=== PATIENT | female | born 1985 | race Caucasian/White ===

== ENCOUNTER 2020-07-18 00:39 | Outpatient (CLI) | payer BC, SELFPAY ==
[2020-07-18 18:38] LABS: SARS-CoV-2 RNA PCR Negative
== END 2020-07-18 00:40 | disposition home or self-care (01) ==
LOC: ANHCOVIDDT 00:39
PROVIDERS: PCP Family Medicine; Visit Provider Obstetrics & Gynecology
DX: Z01.818 Encounter for other preprocedural examination (principal); Z20.828 Contact with and (suspected) exposure to other viral communicable diseases
CPT/HCPCS: C9803; U0003

== ENCOUNTER 2020-07-21 01:04 | Day surgery (SDC) | payer BC, SELFPAY ==
[2020-07-08 08:54] VITALS: BMI 39.9
--- NOTE | 2020-07-16 15:00 | PM.IMHP ---
H&P: HPI History of Present Illness Date/Time: 07/16/20 15:00 Chief Complaint: Misplaced IUD strings Narrative: Vicky Self is a 34 year old female who wants IUD removed, but strings are not visible. Attempt at blind removal in office was unsuccessful Review of Systems Review of Systems: All systems reviewed & are unremarkable except as noted in HPI and below PMFSH Past Medical History Medical History delivery delivered 06/02/18 Full term female 8lbs 15oz History of PCOS Hypertension Family History Family History Grandparent Carcinoma of colon Diabetes mellitus Cerebrovascular accident Hypertension Father Hypertension Hyperlipidemia Social History Social History Smoking packs per day: 1 Smoking cigarettes per day: 20.0 Years smoked: 16 Smoking pack-years: 16.00 Smoking status: Former smoker Smoking end date: 10/06/17 Alcohol intake: current Drinks per week: 3 Substance use: former Substance use type: marijuana Other substance usage details: 20 years ago Spiritual care concerns: No Meds Home Medications and Allergies Home Medications Medication Instructions Recorded Confirmed Type ibuprofen 200 mg capsule 200 mg PO Q6H PRN 03/10/20 07/08/20 History prenat.vits,cadence,qxk-[id number]-smcir 1 tablet PO DAILY 07/08/20 07/08/20 History [ Vitamin] Allergies Allergy/AdvReac Type Severity Reaction Status Date / Time No Known Allergies Allergy Verified 07/08/20 08:53 Exam Const: General: healthy appearing, no acute distress, alert and awake Resp: Auscultation: clear to auscultation bilaterally Cardio: Rate: regular rate Rhythm: regular rhythm GI: Inspection: non-distended GI Palp: Yes Soft to palpation and No Tenderness to palpation present (GI) : Bimanual exam- vagina & uterus: normal bimanual exam, uterine size normal, non-tender and soft Bimanual Exam- Adnexa, other: normal adnexae, no masses and No adnexal tenderness Extrem: General: no pedal edema and no calf tenderness Psych: Mental Status: mental status grossly normal Assessment and Plan Assessment and plan (1) IUD strings lost: Code(s): T83.32XA - Displacement of intrauterine contraceptive device, initial encounter Status: Acute Assessment and Plan: She signed consent for D&C, hysteroscopic IUD removal after risks, benefits, complications, and alternatives discussed. She expressed understanding and wishes to proceed
[2020-07-21 10:07] VITALS: BP 150/86; PULSE 83; RESP 16; TEMP 36.1; O2SAT 100
[2020-07-21 10:09] VITALS: BMI 41.1
[2020-07-21] MEDS: ACETAMINOPHEN 500 MG TABLET 1000 MG PO (10:20)
[2020-07-21] MEDS: LACTATED RINGERS 1,000 ML 30 ML IV CONT (10:22)
--- NOTE | 2020-07-21 10:42 | WPDANESEPPF ---
Anes - Initial Pre Proc Eval Procedure: Operation Date: 07/21/20 12:00 Proposed Procedures p Hysteroscopy, Removal Intrauterine Device - Valorie Huddleston MD Date/Time: 07/21/20 10:42 Surgeon: Valorie Huddleston MD Pre Op Diagnosis: misplaced IUD Patient Data Age: 34 Gender: F Height: 5 ft 9 in Weight: 126.3 kg Last Vital Signs Temp 36.1 C L 07/21/20 10:07 Pulse 83 07/21/20 10:07 Resp 16 07/21/20 10:07 BP 150/86 H 07/21/20 10:07 Pulse Ox 100 07/21/20 10:07 Allergies Allergy/AdvReac Type Severity Reaction Status Date / Time No Known Allergies Allergy Verified 07/21/20 10:19 Home Medications Medication Instructions Recorded Confirmed Type ibuprofen 200 mg capsule 200 mg PO Q6H PRN 03/10/20 07/21/20 History prenat.vits,cadence,cna-zdcj-efwxw 1 tablet PO DAILY 07/08/20 07/21/20 History [ Vitamin] Patient hx anesthesia problems: none Family hx anesthesia problems: none PMFSH Past Medical History Medical History (Updated 07/21/20 @ 10:42 by Rafael Tesfaye MD) delivery delivered 06/02/18 Full term female 8lbs 15oz History of PCOS Hypertension Morbid obesity Family History Family History Grandparent Carcinoma of colon Diabetes mellitus Cerebrovascular accident Hypertension Father Hypertension Hyperlipidemia Social History Social History Smoking packs per day: 1 Smoking cigarettes per day: 20.0 Years smoked: 16 Smoking pack-years: 16.00 Smoking status: Former smoker Smoking end date: 10/06/17 Alcohol intake: current Drinks per week: 3 Substance use: former Substance use type: marijuana Other substance usage details: 20 years ago Living arrangements: with family Spiritual care concerns: No Anes - Eval Final PreProcedure Day of Procedure 07/21/20 10:42 Patient weight: morbidly obese Heart: regular rate and rhythm Lungs: clear to auscultation Airway: Mallampati scale class II Neurological: alert and oriented Last oral intake: >/= 8 hours ASA classification: III Emergent: no Anesthetic plan: proceed Anesthesia type and monitoring: general GIVS and standard monitoring Informed Consent: The patient's anesthetic plan and its attendant risks and benefits were discussed with the patient/family/POA. Questions were solicited and answers provided to the satisfaction of the patient/family/POA.
--- NOTE | 2020-07-21 11:33 | WPDHPUPDATE1 ---
History and Physical Update Update Date/Time: 07/21/20 11:33 History and Physical has been reviewed, including an updated exam of the patient. There are NO changes in the patient's condition. Risks, benefits, and alternatives have been discussed and questions answered. Patient agrees to proceed with procedure.
--- NOTE | 2020-07-21 11:51 | PM.PROC ---
Procedure Note - Detailed Date of procedure: 07/21/20 Pre-op diagnosis: misplaced IUD Post-op diagnosis: same Procedure performed: D&C, hysteroscopic IUD removal Description of procedure: She was taken to the operating room where she was sedated and placed in the dorsal lithotomy position. A speculum was placed in the vagina. The anterior lip of the cervix was grasped with a single-tooth tenaculum. The cervix was dilated to allow passage of the hysteroscope. The IUD string as well as the actual IUD were easily visualized. A hysteroscopic grasper was used to grasp the IUD under hysteroscopic visualization. The IUD was removed easily intact. Another look was taken with the hysteroscope, which revealed normal intrauterine anatomy. The hysteroscope was removed,, and the tenaculum was removed. The left tenaculum site was bleeding slightly. Pressure was held with ring forceps until excellent hemostasis was assured. All instruments were removed from the vagina. Sponge, lap, and instrument counts were correct x2. She was taken to the recovery room in stable condition. Anesthesia: MAC Surgeon: Valorie Huddleston MD Estimated blood loss (mL): 5 Drains: No Packing: No Pathology: none sent Complications: No immediate complications Condition: stable Disposition: PACU Findings: normal endometrial cavity, IUD seen and removed intact
--- NOTE | 2020-07-21 12:25 | SUR.OPER ---
500ml ns in, 500ml ns out. aware
[2020-07-21] MEDS: KETOROLAC 30 MG/ML VIAL (*BKC) IV PUSH (12:29)
[2020-07-21 12:35] VITALS: BP 137/78; PULSE 93; RESP 18; O2SAT 96
[2020-07-21 13:00] VITALS: BP 123/84; PULSE 76; RESP 18
[2020-07-21 13:19] VITALS: BP 135/87; PULSE 77; RESP 18
== END 2020-07-21 13:35 | disposition home or self-care (01) ==
PROVIDERS: PCP Family Medicine; Visit Provider Obstetrics & Gynecology
PROC: 0U5B8ZZ Destruction of Endometrium, Via Natural or Artificial Opening Endoscopic (ICD-10-PCS; CPT 58563; principal; 2020-07-21 12:00)
DX: T83.32XA Displacement of intrauterine contraceptive device, initial encounter (principal); Y84.8 Other medical procedures as the cause of abnormal reaction of the patient, or of later complication, without mention of misadventure at the time of the procedure; I10 Essential (primary) hypertension; Z87.891 Personal history of nicotine dependence; E66.01 Morbid (severe) obesity due to excess calories; Z68.41 Body mass index [BMI] 40.0-44.9, adult
CPT/HCPCS: 58562; A9270; J1885; J2250; J2405; J2704; J3010; J7030; J7120

== ENCOUNTER → 2020-10-16 12:34 | Outpatient (CLI) | payer BC, SELFPAY ==
--- NOTE | ~2020-10-16 | US_ITS ---
EXAMINATION: US OB <=14 wk fetus w TV EXAM DATE: 10/16/2020 13:21 INDICATION: For dating. 1st trimester. TECHNIQUE: Pelvic obstetrical transabdominal sonogram was performed by a technologist. There are mu ltiple grayscale and Doppler images available for interpretation. There are no earlier studies of th is gestation for comparison. FINDINGS: Uterus measures 11.0 x 5.3 x 7.9 cm. There is intrauterine gestation sac. The mean sac mariana meter of 1.9 cm corresponds to estimated gestational age 6 weeks and 2 days, NUBIA by ultrasound 2020. Possible identification of yolk sac and possible identification of pole, but could not c onfirm heart rate at this time. Consider follow-up in one week. There is no sonographic evidence of subchorionic hemorrhage. The ovaries are morphologically normal. IMPRESSION: Intrauterine gestation sac, could not confirm viable pole at this time. Consider 1 -2 week follow-up. Reviewed, dictated and finalized at location A. IMPRESSION: Intrauterine gestation sac, could not confirm viable pole at this time. Consider 1-2 week follow-up.
== END ==
PROVIDERS: Visit Provider Obstetrics & Gynecology
DX: O36.60X1 Maternal care for excessive fetal growth, unspecified trimester, fetus 1 (principal); Z3A.01 Less than 8 weeks gestation of pregnancy
CPT/HCPCS: 76801; 76817

== ENCOUNTER → 2020-10-23 13:39 | Outpatient (CLI) | payer BC, SELFPAY ==
--- NOTE | ~2020-10-23 | US_ITS ---
EXAMINATION: US OB <=14 wk fetus w TV EXAM DATE: 10/23/2020 14:11 INDICATION: O36.80X0 - with inconclusive viability, not applicable or unspecified. 1 st trimester. TECHNIQUE: Pelvic obstetrical transabdominal and transvaginal sonogram was performed by a technologi . There are multiple grayscale and Doppler images available for interpretation. Comparison is made to prior examination from 10/16/2020. FINDINGS: Uterus measures 11.8 x 5.2 x 6.5 cm. There is intrauterine gestation sac better visualized transabdominally, with mean sac diameter on this exam 2.1 cm corresponding to a gestational age 6 wee ks 4 days (mean sac diameter a week ago was 1.9 cm, estimated age 6 weeks 2 days). This is less inter rhianna growth than would be expected. Again, could not confirm a pole. These are poor prognostic i ndicators for this exam, consider 1-2 week follow-up pelvic sonogram. No subchorionic hemorrhage iden tified. Ovaries not identified. IMPRESSION: Intrauterine gestation sac identified, again without pole confirmed, and with less growth than would be expected for this time interval. Poor prognostic indicators for this b ut consider 1-2 week follow-up ultrasound. Reviewed, dictated and finalized at location A. IMPRESSION: Intrauterine gestation sac identified, again without pole con firmed, and with less growth than would be expected for this time interval. Poo r prognostic indicators for this but consider 1-2 week follow-up ultr asound.
== END ==
PROVIDERS: Visit Provider Obstetrics & Gynecology
DX: O36.80X0 Pregnancy with inconclusive fetal viability, not applicable or unspecified (principal); Z3A.00 Weeks of gestation of pregnancy not specified
CPT/HCPCS: 76801; 76817

== ENCOUNTER → 2021-08-18 09:47 | Outpatient (CLI) | payer BC, SELFPAY ==
--- NOTE | ~2021-08-18 | US_ITS ---
EXAMINATION: US OB <=14 wk fetus w TV DATE: 08/18/2021 10:24 INDICATION: Establish dating of first trimester . TECHNIQUE: Real-time pelvic ultrasound utilizing both a transvaginal and transabdominal probe was pe rformed. The interpreting radiologist was not present for the study. COMPARISON: None. FINDINGS: The uterus measures 13.2 x 4.9 x 5.7 cm. There is an intrauterine gestational sac. A yolk sac and fe rebeca pole are identified. The crown rump length measures 6 mm, which correlates with an estimated gest ational age of 6 weeks and 3 days. heart motion is identified measuring 137 beats per minute (b pm) by M-mode Doppler. The right ovary measures 3.4 x 2.8 x 2.1 cm. The left ovary measures 2.7 x 2.3 x 2.5 cm. There is no free fluid in the pelvis. IMPRESSION: 1. Single living fetus with heart rate of 137 bpm. 2. Gestational age by ultrasound of 6 weeks 3 day(s) +/- 4 day(s) with ultrasound estimated date of delivery (NUBIA) of 04/10/2022. Reviewed, dictated and finalized at location A. DENT RESPONSE LEAD IMPRESSION: 1. Single living fetus with heart rate of 137 bpm. 2. Gestational age by ultrasound of 6 weeks 3 day(s) +/- 4 day(s) with ultraso und estimated date of delivery (NUBIA) of 04/10/2022.
== END ==
PROVIDERS: Visit Provider Obstetrics & Gynecology
DX: Z34.90 Encounter for supervision of normal pregnancy, unspecified, unspecified trimester (principal); Z3A.01 Less than 8 weeks gestation of pregnancy
CPT/HCPCS: 76801; 76817

== ENCOUNTER → 2021-08-31 10:20 | Outpatient (CLI) | payer BC, SELFPAY ==
--- NOTE | ~2021-08-31 | US_ITS ---
EXAMINATION: US OB <=14 wk fetus w TV DATE: 08/31/2021 10:59 INDICATION: First trimester viability assessment TECHNIQUE: Real-time pelvic transabdominal and transvaginal ultrasound was performed. COMPARISON: 08/18/2021 FINDINGS: The uterus measures 11.9 x 5.9 x 8 cm. There is an intrauterine gestational sac. A yolk sa c is identified. heart motion is identified measuring 173 beats per minute (bpm) by M-mode Dopp ler. The crown rump length measures 1.9 cm , which correlates with an estimated gestational age of 8 weeks and 3 day(s) (+/-) 5 day(s). The right ovary is not visualized however no right adnexal abnormality is seen. The left ovary measur es 4.2 x 3.1 x 4.2 cm and contains a corpus. There is normal vascular flow in the left ovary. There i s no free fluid in the pelvis. IMPRESSION: 1. Live intrauterine with an estimated gestational age of 8 weeks and 3 day(s) (+/-) 5 day( s) and an estimated delivery date of 04/09/2022. Reviewed, dictated and finalized at location A. TRAPPER IMPRESSION: 1. Live intrauterine with an estimated gestational age of 8 weeks and 3 day(s) (+/-) 5 day(s) and an estimated delivery date of 04/09/2022.
== END ==
PROVIDERS: Visit Provider Obstetrics & Gynecology
DX: Z36.89 Encounter for other specified antenatal screening (principal); Z3A.08 8 weeks gestation of pregnancy
CPT/HCPCS: 76801; 76817

== ENCOUNTER → 2021-09-08 12:53 | Outpatient (CLI) | payer BC, SELFPAY ==
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
== END ==
PROVIDERS: Visit Provider Obstetrics & Gynecology
DX: O20.0 Threatened abortion (principal); Z3A.09 9 weeks gestation of pregnancy
CPT/HCPCS: 76801; 76817

== ENCOUNTER 2021-12-10 18:19 | Observation (INO) | payer OTHER, BC, SELFPAY ==
[2021-12-10 18:45] VITALS: BMI 40.4
[2021-12-10 18:46] VITALS: BP 135/80; PULSE 81
[2021-12-10 19:01] VITALS: BP 127/70; PULSE 80
[2021-12-10 19:16] VITALS: BP 127/68; PULSE 77
[2021-12-10 19:31] VITALS: BP 124/64; PULSE 78
[2021-12-10 19:46] VITALS: BP 135/75; PULSE 80
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
== END 2021-12-10 20:00 | disposition home or self-care (01) ==
PROVIDERS: Admitting Provider Obstetrics & Gynecology; PCP Family Medicine; Visit Provider Student in an Organized Health Care Education/Training Program
DX: O9A.219 Injury, poisoning and certain other consequences of external causes complicating pregnancy, unspecified trimester (principal); Z3A.00 Weeks of gestation of pregnancy not specified
CPT/HCPCS: G0378; G0379

== ENCOUNTER 2022-02-05 11:00 | Outpatient (RCR) | payer BC, SELFPAY | END 2022-04-16 13:37 | disposition home or self-care (01) | LOC: ANHDMC 11:00 | PROVIDERS: PCP Family Medicine; Visit Provider Obstetrics & Gynecology | DX: O24.319 Unspecified pre-existing diabetes mellitus in pregnancy, unspecified trimester (principal); Z71.89 Other specified counseling; Z3A.00 Weeks of gestation of pregnancy not specified | CPT/HCPCS: G0108 ==

== ENCOUNTER 2022-03-16 15:30 | Outpatient (CLI) | payer BC, SELFPAY ==
[2022-03-16 16:03] VITALS: BP 151/92; PULSE 90
[2022-03-16 16:13] LABS: Basophils Percent Auto 0.3 % (0.2-1.2); Eosinophils Absolute Auto 0.1 K/mm3 (0-0.3); Eosinophils Percent Auto 0.7 % (0-4.4); Hematocrit 33.8 % (37.0-47.0); Immature Granulocyte Absolute 0.04 K/mm3 (0.00-0.031); Immature Granulocyte Percent A 0.4 % (0-0.5); Lymphocytes Percent Auto 26.5 % (18.3-44.2); Mean Corpuscular HGB Conc 32.5 g/dl (32-36); Mean Corpuscular Hemoglobin 28.1 pg (26-34); Mean Corpuscular Volume 86.4 fl (80-100); Mean Platelet Volume 9.8 fl (7.4-10.4); Monocytes Absolute Auto 0.6 K/mm3 (0.1-0.6); Monocytes Percent Auto 6.3 % (2.6-8.5); Neutrophils Absolute Auto 6.2 K/mm3 (1.3-6.7); Neutrophils Percent Auto 65.8 % (45.5-73.1); Platelet Count Result 242 k/mm3 (150-375); Red Blood Count 3.91 M/mm3 (4.2-5.4); Red Cell Distribution Width 15.5 % (11.5-14.5); White Blood Count 9.4 K/mm3 (4.5-10.0)
[2022-03-16 16:15] LABS: Add Urine Microscopic? YES; Appearance Urine Clear (Clear); Bilirubin Urine Negative (Negative); Blood Urine Negative (Negative); Color Urine Yellow (Yellow); Glucose Urine UA Negative (Negative); Ketones Urine Negative (Negative); Leukocyte Esterase Ur Negative LEU/UL (NEGATIVE); Nitrate Urine Negative (Negative); Protein Urine 1+ mg/dL (Negative); Specific Grav Ur 1.025 (1.001-1.035); Urobilinogen Urine 0.2 mg/dL (<2.0)
[2022-03-16 16:16] VITALS: BP 147/98; PULSE 89
[2022-03-16 16:19] LABS: Mucus Urine Rare /lpf; RBC Urine 0-2 /hpf (0-2); Squamous Epithelial Cell Urine Few /hpf (Few); WBC Urine 0-3 /hpf (0-3)
[2022-03-16 16:21] LABS: Creatinine Urine 94.9 mg/dL; Total Protein Urine Random 30 mg/dL; Ur Ttl Prot Creatinine Ratio 0.32 mg/mg (0-0.20)
[2022-03-16 16:23] LABS: Alanine Aminotransferase 16 U/L (6-35); Albumin Level 3.5 g/dL (3.5-5.1); Alkaline Phosphatase 114 U/L (38-126); Anion Gap 11 mmol/L (8-16); Aspartate Amino Transferase 19 U/L (14-36); Bilirubin,Total 0.1 mg/dL (0.2-1.3); Blood Urea Nitrogen 9 mg/dL (7-17); Calcium 9.2 mg/dL (8.4-10.2); Carbon Dioxide 21 mmol/L (22-30); Chloride 102 mmol/L (98-107); Estimated Glomerular Filt Rate > 60; Glucose 111 mg/dL (65-110); Sodium 134 mmol/L (137-145); Uric Acid 3.6 mg/dL (2.5-7.5)
[2022-03-16 16:30] VITALS: BP 151/92; PULSE 90
[2022-03-16 16:31] VITALS: BP 144/90; PULSE 90
[2022-03-16 16:46] VITALS: BP 145/92; PULSE 85
--- NOTE | 2022-03-16 16:55 | PC.NURSE ---
Dr. Hernandez updated on pt labs, VS and tracing. Order received for pt to complete 24 hour urine and be discharged home.
[2022-03-16 17:10] VITALS: BP 147/98; PULSE 89
== END 2022-03-16 17:02 | disposition home or self-care (01) ==
LOC: ANHOBOP 15:40 → ANHOBPP 15:43
PROVIDERS: PCP Family Medicine; Visit Provider Obstetrics & Gynecology
DX: O13.9 Gestational [pregnancy-induced] hypertension without significant proteinuria, unspecified trimester (principal); Z3A.00 Weeks of gestation of pregnancy not specified
CPT/HCPCS: 36415; 59025; 80053; 81001; 82570; 84156; 84550; 85025; 87086; 87088; 87147; 99199

== ENCOUNTER 2022-03-17 17:38 | Outpatient (CLI) | payer BC, SELFPAY ==
[2022-03-17 20:50] LABS: Collection Time Urine 24 HOURS
[2022-03-17 20:56] LABS: Total Volume 24 Hour Urine 2500 ml
[2022-03-17 21:00] LABS: Creatinine Urine 92.8 mg/dL; Total Protein Urine 24 Hr 325 mg/24hr (28-141); Total Protein Urine Random 13 mg/dL
[2022-03-17 21:09] LABS: Creatinine Clearance Urine 232.2 ml/min (75-125); Patient Weight 287 Lbs
== END 2022-03-17 17:39 | disposition home or self-care (01) ==
LOC: ANHOBOP 17:40
PROVIDERS: PCP Family Medicine; Visit Provider Obstetrics & Gynecology
DX: O16.9 Unspecified maternal hypertension, unspecified trimester (principal); Z3A.00 Weeks of gestation of pregnancy not specified
CPT/HCPCS: 81050; 82575; 84156

== ENCOUNTER 2022-03-18 11:43 | Outpatient (RCR) | payer BC, SELFPAY ==
[2022-02-18 13:15] VITALS: BP 128/77; PULSE 90
[2022-02-22 11:23] VITALS: BP 122/70; PULSE 90
[2022-02-25 12:02] VITALS: BP 92/47; PULSE 103
[2022-03-01 11:46] VITALS: BP 140/77; PULSE 91
[2022-03-04 12:22] VITALS: BP 134/85; PULSE 90
[2022-03-08 11:49] VITALS: BP 127/76; PULSE 88
[2022-03-11 12:09] VITALS: BP 138/82; PULSE 87
[2022-03-15 11:28] VITALS: BP 137/89; PULSE 80
[2022-03-18 12:30] VITALS: BP 139/92; PULSE 87
== END 2022-03-18 13:00 | disposition home or self-care (01) ==
LOC: ANHOBOP 11:43
PROVIDERS: PCP Family Medicine; Visit Provider Obstetrics & Gynecology
DX: O24.419 Gestational diabetes mellitus in pregnancy, unspecified control (principal); Z3A.32 32 weeks gestation of pregnancy; Z3A.34 34 weeks gestation of pregnancy; Z3A.35 35 weeks gestation of pregnancy; O16.3 Unspecified maternal hypertension, third trimester; Z3A.36 36 weeks gestation of pregnancy
CPT/HCPCS: 59025

== ENCOUNTER 2022-03-18 12:43 | Outpatient (CLI) | payer BC, SELFPAY ==
[2022-03-18 13:10] LABS: Hematocrit 34.4 % (37.0-47.0); Hemoglobin 10.8 g/dL (12.0-15.0); Mean Corpuscular HGB Conc 31.4 g/dl (32-36); Mean Corpuscular Hemoglobin 27.9 pg (26-34); Mean Corpuscular Volume 88.9 fl (80-100); Mean Platelet Volume 10.1 fl (7.4-10.4); Platelet Count Result 235 k/mm3 (150-375); Red Blood Count 3.87 M/mm3 (4.2-5.4); Red Cell Distribution Width 15.6 % (11.5-14.5); White Blood Count 8.9 K/mm3 (4.5-10.0)
[2022-03-19 07:23] LABS: Rapid Plasma Reagin Non-Reactive (NonReactive)
== END 2022-03-18 12:44 | disposition home or self-care (01) ==
PROVIDERS: PCP Family Medicine; Visit Provider Obstetrics & Gynecology
DX: Z34.93 Encounter for supervision of normal pregnancy, unspecified, third trimester (principal); Z3A.00 Weeks of gestation of pregnancy not specified
CPT/HCPCS: 36415; 85027; 86592; 86850; 86900; 86901

== ENCOUNTER 2022-03-19 09:49 | Inpatient (IN) | payer BC, SELFPAY ==
--- NOTE | 2022-03-09 14:52 | PC.NURSE ---
Phone interview done--pre-op teaching done. patient instructed to be in OB 2 hours before surgery,NPO 8 hours [address] surgery per Dr Hernandez instruction and to have pre-op labs drawn on 03/30/22. Patient verbalized her understanding
[2022-03-19] VITALS (51 sets, daily range): BP systolic 115–146; BP diastolic 69–93; PULSE 59–121; RESP 15–19; TEMP 36.2–37.1; O2SAT 96–100; BMI 43.0
--- NOTE | 2022-03-19 09:42 | WPDANESEPPF ---
Anes - Initial Pre Proc Eval Procedure: Operation Date: 03/19/22 12:00 Proposed Procedures p Repeat Section with Tubal Ligation - Aston Hernandez MD Date/Time: 03/19/22 09:42 Surgeon: Aston Hernandez MD Pre Op Diagnosis: REPEAT C/S Patient Data Age: 36 Gender: F Height: Weight: Allergies Allergy/AdvReac Type Severity Reaction Status Date / Time No Known Allergies Allergy Verified 03/19/22 10:20 Home Medications Medication Instructions Recorded Confirmed Type prenat.vits,cadence,eau-ftev-rpnql 1 tablet PO DAILY 07/08/20 03/19/22 History acetaminophen 325 mg capsule 325 mg PO Q6H PRN Pain 08/19/21 03/19/22 History (Tylenol) insulin NPH human semi-syn 100 20 unit subcut QHS 02/18/22 03/19/22 History unit/mL subcutaneous cartridge insulin NPH human semi-syn 100 14 unit subcut QACBREAK 03/11/22 03/19/22 History unit/mL subcutaneous cartridge Patient hx anesthesia problems: none Family hx anesthesia problems: none Results Review: All pre-operative results and documents have been reviewed as part of the pre-operative evaluation. [facility] Past Medical History Medical History (Updated 03/19/22 @ 09:43 by Jose Marcos MD) GDM (gestational diabetes mellitus) History of miscarriage x2 History of PCOS Hypertension Morbid obesity Surgical History Surgical History Previous section x1 Family History Family History (Updated 03/09/22 @ 14:38 by Blanche Bolden RN) Grandparent Diabetes mellitus Carcinoma of colon Hypertension Cerebrovascular accident Heart disease Heart attack H/O heart bypass surgery Skin cancer Gallbladder cancer Father Hyperlipidemia Hypertension Diabetes mellitus Mother Hypertension Social History Social History Smoking packs per day: 1 Smoking cigarettes per day: 20.0 Years smoked: 16 Smoking pack-years: 16.00 Smoking status: Former smoker Tobacco type: cigarettes Smoking end date: 10/06/17 Alcohol intake: current Drinks per week: 3 Substance use: never Substance use type: marijuana Other substance usage details: 20 years ago Spiritual care concerns: No Anes - Eval Final PreProcedure Day of Procedure 03/19/22 09:42 Patient weight: morbidly obese Heart: regular rate and rhythm Lungs: clear to auscultation Airway: Mallampati scale class II Neurological: alert and oriented Last oral intake: >/= 8 hours ASA classification: III Emergent: no Anesthetic plan: proceed Anesthesia type and monitoring: regional spinal and standard monitoring Results Review: All pre-operative results and documents have been reviewed as part of the pre-operative evaluation. Informed Consent: The patient's anesthetic plan and its attendant risks and benefits were discussed with the patient/family/POA. Questions were solicited and answers provided to the satisfaction of the patient/family/POA.
--- NOTE | 2022-03-19 10:24 | LDADM ---
This patient, Vicky Self, was admitted to Labor/Delivery/Recovery 119 on 03/19/22 at 09:49. Plans for labor, pain management and were discussed with patient. Patient/family oriented to hospital policies and general routines including ID bracelet, bed and alarms, visiting hours, pain management, procedures, bathroom and other care routines, personal items, smoking policy, room service/diet and guest tray routines, infant security routines, and visiting hours. Patient/Family are encouraged to report perceived risks to care and to ask questions if they do not understand what they are told or what they should do. See OBIX for further documentation.
[2022-03-19] MEDS: LACTATED RINGERS 1,000 ML 999 ML IV CONT (10:38)
[2022-03-19 10:59] LABS: Alanine Aminotransferase 15 U/L (6-35); Albumin Level 3.6 g/dL (3.5-5.1); Alkaline Phosphatase 123 U/L (38-126); Anion Gap 12 mmol/L (8-16); Aspartate Amino Transferase 21 U/L (14-36); Bilirubin,Total 0.2 mg/dL (0.2-1.3); Blood Urea Nitrogen 12 mg/dL (7-17); Calcium 8.4 mg/dL (8.4-10.2); Carbon Dioxide 21 mmol/L (22-30); Chloride 103 mmol/L (98-107); Estimated CRCL calculation 186 ml/min; Estimated Glomerular Filt Rate > 60; Glucose 84 mg/dL (65-110); Potassium 4.1 mmol/L (3.4-5.0); Sodium 136 mmol/L (137-145); Uric Acid 4.2 mg/dL (2.5-7.5)
--- NOTE | 2022-03-19 11:47 | PM.IMHP ---
H&P: HPI History of Present Illness Date/Time: 03/19/22 11:47 Chief Complaint: Here for C section. Narrative: 36 y/o at 37 2/7 weeks with prior , A2DM on insulin, GBS bacteruria, chronic HTN, and now mild preeclampsia based on 24 hour urine protein collection. No headaches. No visual field change. No epigastric or RUQ pain. Good movement. She does not desire any future childbearing and would like permanent contraception as well. Review of Systems Review of Systems: All systems reviewed & are unremarkable except as noted in HPI and below PMFSH Past Medical History Medical History (Updated 03/19/22 @ 11:50 by Aston Hernandez MD) GDM (gestational diabetes mellitus) History of miscarriage x2 History of PCOS Hypertension Morbid obesity Surgical History Surgical History (Updated 03/19/22 @ 11:50 by Aston Hernandez MD) Previous section x1 Family History Family History Grandparent Diabetes mellitus Carcinoma of colon Hypertension Cerebrovascular accident Heart disease Heart attack H/O heart bypass surgery Skin cancer Gallbladder cancer Father Hyperlipidemia Hypertension Diabetes mellitus Mother Hypertension Social History Social History Smoking packs per day: 1 Smoking cigarettes per day: 20.0 Years smoked: 16 Smoking pack-years: 16.00 Smoking status: Former smoker Tobacco type: cigarettes Smoking end date: 10/06/17 Alcohol intake: current Drinks per week: 3 Substance use: never Substance use type: marijuana Other substance usage details: 20 years ago Spiritual care concerns: No Meds Home Medications and Allergies Home Medications Medication Instructions Recorded Confirmed Type prenat.vits,cadence,mjk-glan-gynav 1 tablet PO DAILY 07/08/20 03/19/22 History acetaminophen 325 mg capsule 325 mg PO Q6H PRN Pain 08/19/21 03/19/22 History (Tylenol) insulin NPH human semi-syn 100 20 unit subcut QHS 02/18/22 03/19/22 History unit/mL subcutaneous cartridge insulin NPH human semi-syn 100 14 unit subcut QACBREAK 03/11/22 03/19/22 History unit/mL subcutaneous cartridge Allergies Allergy/AdvReac Type Severity Reaction Status Date / Time No Known Allergies Allergy Verified 03/19/22 10:20 Vital Signs Vital Signs - 24 hr 03/19/22 10:23 03/19/22 10:32 03/19/22 10:40 Temperature 36.8 C Pulse Rate 89 Respiratory Rate 16 Blood Pressure 139/82 Oxygen Delivery Room Air 03/19/22 10:46 03/19/22 10:50 Temperature 36.8 C Pulse Rate 89 Respiratory Rate Blood Pressure 142/86 H Oxygen Delivery Exam Const: Orientation/consciousness: patient oriented x3 Other: Well-developed, well-nourished female in no acute distress. Neck: Thyroid: thyroid normal Lymphatic: no lymphadenopathy noted (in neck, axilla or inguinal nodes) Resp: Effort & Inspection: normal respiratory effort Auscultation: clear to auscultation bilaterally Cardio: Rate: regular rate Rhythm: regular rhythm Heart sounds: S1 normal heart sound present and S2 normal heart sound present GI: Other: ABD: Soft, nontender, gravid. NST reactive. TOCO: rare contractions. No epigastric or RUQ tenderness. No guarding or rebound tenderness. No hepatosplenomegaly. : General: Yes no CVA tenderness Other: Cervix closed, thick Back/Spine/Pelvis: Back: no CVA tenderness Skin: General skin exam: normal color and no rashes or lesions noted Neuro: General: patient oriented x3 Extrem: Other: Extremities: nontender with no edema Psych: Mental Status: mental status grossly normal Affect: normal affect H&P: Results Labs Labs: BMP 03/19/22 10:39 Sodium 136 L Potassium 4.1 Chloride 103 Carbon Dioxide 21 L BUN 12 Creatinine 0.50 L Glucose 84 Calcium 8.4 Liver Function 03/19/22 Ra
--- NOTE | 2022-03-19 11:52 | WPDHPUPDATE1 ---
History and Physical Update Update Date/Time: 03/19/22 11:52 History and Physical has been reviewed, including an updated exam of the patient. There are NO changes in the patient's condition. Risks, benefits, and alternatives have been discussed and questions answered. Patient agrees to proceed with procedure.
[2022-03-19] MEDS: ceFAZolin 3 GM/D5W 100 ML 100 ML IVPB (12:01)
[2022-03-19] MEDS: ONDANSETRON INJ 4 MG/2 ML VIAL IV PUSH (12:15)
--- NOTE | 2022-03-19 13:09 | PM.OBPRVD ---
OB - Delivery Note Procedure Delivery date: 03/19/22 Procedure: Procedures Operation Date: 03/19/22 12:00 <No data on this case meets the specified criteria> -Repeat low transverse delivery -Bilateral tubal ligation via modified Hadley technique Events: Gestational Diabetes and Positive Group B Strep (GBS) Delivery monitor: External FHT and External Uterine Route of delivery: Specimen: Yes (cord blood, placenta, segments of bilateral Fallopian tubes) Quantitative Blood Loss (ml): 680 Anesthesia type: Spinal Disposition: PACU Complications: None Narrative: The patient was taken to the operating room where she was prepared and draped in the usual sterile fashion in dorsal supine position with a leftward tilt. She received cefazolin preoperatively. Spinal anesthesia was found to be adequate. A Pfannenstiel skin incision was made along the previous scar line and was carried through to the underlying layer of the fascia. The fascia was incised in the midline and the incision was extended laterally. The fascia was dissected free of the underlying rectus muscles. The rectus muscles were in the midline. The peritoneum was identified, tented up and entered sharply. The peritoneal incision was extended superiorly and inferiorly with good visualization of the bladder. The bladder blade was placed. The vesicouterine peritoneum was identified, tented up and entered sharply. The incision was extended laterally and the bladder flap was developed. The bladder blade was replaced. The uterus was then incised sharply in a transverse fashion along the lower uterine segment. The incision was extended laterally. The 's head was delivered atraumatically to the sterile field, followed by the body. The nose and mouth were bulb suctioned. After a delay, the cord was clamped and cut. The infant was handed off the field. Cord blood was collected. The placenta was removed manually and was passed off the field. The uterus was exteriorized and cleared of all clots and debris. The uterine incision was reapproximated using 0 Monocryl in a running, locked fashion. Excellent hemostasis resulted as did excellent reapproximation of the normal anatomy. The left fallopian tube was then identified by following it out to the fimbriated end. It was grasped in the midportion with a [place] clamp and a loop of tube was ligated with a free tie of 0 plain gut. The tubal segment was then transected and the specimen was passed off to be sent to pathology. Hemostasis was excellent. Attention was turned to the right fallopian tube which was similarly identified, ligated and transected. Once again, excellent hemostasis resulted. The uterus was returned the abdomen. The pelvis was irrigated copiously with warmed normal saline. Rigorous hemostasis was assured. The fascial layer was reapproximated using 0 Vicryl in a running fashion. The skin was closed with a running, subcuticular stitch of 4 0 Vicryl. Dermaflex was applied externally. Sponge, lap, needle and instrument counts were correct. The patient was taken to the recovery room in stable condition. The infant went to the nursery in stable condition. I was present and scrubbed the entire procedure. [place] Baby Date of : 03/19/22 Time of : 12:30 Weeks of gestation at delivery: 37 Infant gender: Female Weight (pounds): 8 Weight (ounces): 2 presentation: vertex Placenta delivery description: Manual Removal and Normal Configuration Cord Vessel Description: 3 Vessels, Nuchal Cord (x2) and Delayed Cord Clamping score one minute: 8 score five minutes: 9
--- NOTE | 2022-03-19 13:12 | PM.OBDSVD ---
DS: Admitting Diagnosis Discharge Date 03/21/22 Admitting Diagnosis IUP at 37 2/7 weeks A2DM CHTN with superimposed mild preeclampsia GBS bacteruria Prior , desires repeat Desired sterility DS: Discharge Diagnosis Discharge Diagnosis (1) Unwanted fertility: Code(s): Z30.09 - Encounter for other general counseling and advice on contraception Status: Acute (2) GBS bacteriuria: Code(s): R82.71 - Bacteriuria Status: Acute (3) Preeclampsia complicating hypertension: Code(s): O11.9 - Pre-existing hypertension with pre-eclampsia, unspecified trimester Status: Acute (4) Chronic hypertension affecting : Code(s): O10.919 - Unspecified pre-existing hypertension complicating , unspecified trimester Status: Acute (5) Previous section: Code(s): Z98.891 - History of uterine scar from previous surgery Status: Acute (6) GDM (gestational diabetes mellitus): Code(s): O24.419 - Gestational diabetes mellitus in , unspecified control Status: Acute OB - DS: Summary OB Procedures : PIH Mgmt OB Procedures Intrapartum: and Tubal ligation OB Procedures: : None Peripartum Data Procedures: Procedures Operation Date: 03/19/22 12:00 <No data on this case meets the specified criteria> Repeat LTCS with concurrent BTL Time Spent with Patient Time attestation: Total time spent providing and/or coordinating discharge services: DS: Data Data Completed and Pending Labs on day of discharge: Labs from last 24 hours 03/19/22 10:39 Sodium 136 L Potassium 4.1 Chloride 103 Carbon Dioxide 21 L Anion Gap 12 BUN 12 Creatinine 0.50 L Estim Creat Clear Calc 186 Estimated GFR > 60 Glucose 84 Uric Acid 4.2 Calcium 8.4 Total Bilirubin 0.2 AST 21 ALT 15 Alkaline Phosphatase 123 Total Protein 7.0 Albumin 3.6 Discharge Plan Discharge Attending physician on discharge: Aston Hernandez Discharging Clinician: Aston Hernandez Patient Disposition: Home, Self-Care Activity: may shower and pelvic rest Diet: regular Wound Care Instructions: incision open to air Discharge Instructions: Call or return if temperature above 100.4? F, increased abdominal pain, increased vaginal bleeding or any new problems. Stand Alone Forms: General Discharge Information Follow-up/Referrals: Aston Hernandez MD [Physician] - 4 Weeks Discharge Medications: New ferrous sulfate 325 mg (65 mg iron) tablet 325 mg PO DAILY Qty: 30 0RF ibuprofen 600 mg tablet 600 mg PO Q6H PRN (Reason: cramps) Qty: 30 0RF hydrocodone-acetaminophen 5-325 mg tablet 1 - 2 tablet PO Q6H Qty: 30 0RF Continued acetaminophen [Tylenol] 325 mg capsule 325 mg PO Q6H PRN (Reason: Pain) prenat.vits,cadence,[id number] Tablet 1 tablet PO DAILY Discontinued insulin NPH human semi-syn 100 unit/mL Cartridge 20 unit SUBCUT QHS insulin NPH human semi-syn 100 unit/mL Cartridge 14 unit SUBCUT QACBREAK Date of admission: 03/19/22 09:49 Primary Care Provider: Tor,Breann Dasilva Admitting Provider: Aston Hernandez Attending physician on admission: Aston Hernandez Condition: Stable
--- NOTE | 2022-03-19 15:37 | OBPPTRN ---
Patient transferred to post room #284 via stretcher. Support person present. Oriented to unit, room, information board, rooming in, admission packet and security measures. Patient verbalizes understanding.
[2022-03-19] MEDS: OXYTOCIN 30 UNITS/NS 500 ML 30 UNITS/500 ML BAG 125 UNITS IV CONT (15:45)
[2022-03-19] MEDS: IBUPROFEN 600 MG TABLET PO (19:30)
[2022-03-19] MEDS: DOCUSATE SODIUM 100 MG CAPSULE PO (19:31)
[2022-03-19] MEDS: HYDROcodone/acetaminophen (*CRX) 5-325 MG TABLET 1 TAB PO (19:31)
[2022-03-20] MEDS: HYDROcodone/acetaminophen (*CRX) 5-325 MG TABLET 1 TAB PO ×6 (00:49→23:48)
[2022-03-20 04:00] VITALS: BP 139/71; PULSE 80; RESP 18; TEMP 36.9; O2SAT 98
[2022-03-20] MEDS: IBUPROFEN 600 MG TABLET PO ×4 (04:09→23:51)
[2022-03-20 05:48] LABS: Basophils Percent Auto 0.3 % (0.2-1.2); Eosinophils Absolute Auto 0.1 K/mm3 (0-0.3); Eosinophils Percent Auto 0.8 % (0-4.4); Hematocrit 30.3 % (37.0-47.0); Hemoglobin 9.6 g/dL (12.0-15.0); Immature Granulocyte Absolute 0.04 K/mm3 (0.00-0.031); Immature Granulocyte Percent A 0.4 % (0-0.5); Lymphocytes Absolute Auto 1.97 K/mm3 (0.9-3.2); Lymphocytes Percent Auto 21.8 % (18.3-44.2); Mean Corpuscular HGB Conc 31.7 g/dl (32-36); Mean Corpuscular Hemoglobin 27.7 pg (26-34); Mean Corpuscular Volume 87.3 fl (80-100); Mean Platelet Volume 10.4 fl (7.4-10.4); Monocytes Absolute Auto 0.6 K/mm3 (0.1-0.6); Monocytes Percent Auto 6.5 % (2.6-8.5); Neutrophils Absolute Auto 6.3 K/mm3 (1.3-6.7); Neutrophils Percent Auto 70.2 % (45.5-73.1); Platelet Count Result 191 k/mm3 (150-375); Red Blood Count 3.47 M/mm3 (4.2-5.4); Red Cell Distribution Width 15.4 % (11.5-14.5)
[2022-03-20 09:30] VITALS: BP 155/88; PULSE 85; RESP 18; TEMP 36.8; O2SAT 98
--- NOTE | 2022-03-20 09:30 | PC.NURSE ---
PT introductions made and plan of care discussed per post op c section, pain management, breast feeding, pumping and bottle feeding, daily care activities. PT and spouse both recipients of such instructions and no barriers to learning identified at this time. PT received instructions this shift per one to one discussion, mom baby care guide and demonstrations. PT verbalized understanding of such care.
[2022-03-20] MEDS: POLYSACCHARIDE IRON COMPLEX 150 MG CAPSULE PO ×2 (09:41→17:55)
[2022-03-20] MEDS: SIMETHICONE 80 MG TAB.CHEW PO ×3 (09:41→17:53)
[2022-03-20] MEDS: MULTIVIT/MIN/PREN/FOL AC/IRON TABLET 1 TAB PO (09:41)
[2022-03-20] MEDS: DOCUSATE SODIUM 100 MG CAPSULE PO ×2 (09:43→17:54)
--- NOTE | 2022-03-20 10:19 | WPDANLDPN2 ---
Anes-Prog Note L&D Date/Time: 03/20/22 10:19 Neuro status: Neuro function grossly intact. Vital Signs: Last Vital Signs Temp 36.9 C 03/20/22 04:00 Pulse 80 03/20/22 04:00 Resp 18 03/20/22 04:00 BP 139/71 03/20/22 04:00 Pulse Ox 98 03/20/22 04:00 O2 Del Method Room Air 03/19/22 19:30 Pain score (VAS): 0 I/O: Intake & Output 03/19/22 03/20/22 03/20/22 23:59 07:59 15:59 Intake Total 250 Output Total 850 Balance 250 -850 Patient feedback: Patient satisfied with anesthetic care.
--- NOTE | 2022-03-20 11:27 | P.PNOB_ITS ---
OB - PN: Subj Subjective Date/time seen: 03/20/22 11:27 Narrative: Pain OK. Tolerating diet. OB - PN: Obj Data Labs CBC & Chem 7: 03/20/22 04:07 03/19/22 10:39 Labs: Laboratory Results - last 24 hr 03/20/22 04:07 WBC 9.0 RBC 3.47 L Hgb 9.6 L Hct 30.3 L MCV 87.3 MCH 27.7 MCHC 31.7 L RDW 15.4 H Plt Count 191 MPV 10.4 Immature Gran % (Auto) 0.4 Neut % (Auto) 70.2 Lymph % (Auto) 21.8 [place] % (Auto) 6.5 Eos % (Auto) 0.8 Baso % (Auto) 0.3 Lymph # (Auto) 1.97 [place] # (Auto) 0.6 Eos # (Auto) 0.1 Baso # (Auto) 0.0 Abs Immat Gran (auto) 0.04 H Absolute Neuts (auto) 6.3 Absolute Nucleated RBC 0.0 Nucleated RBC % 0.0 OB - PN A/P Plan Comments: A: POD#1, doing well. P: Routine care. Exam Narrative: AVSS I/O OK ABD soft, nontender, fundus firm. Incision c/d/i. EXT nontender
[2022-03-20 15:41] VITALS: BP 142/85; PULSE 86; RESP 20; TEMP 36.9; O2SAT 98
[2022-03-20 16:00] VITALS: BP 118/70; PULSE 88; RESP 18; TEMP 36.8; O2SAT 97
[2022-03-20 19:15] VITALS: BP 143/87; PULSE 80; RESP 18; TEMP 37; O2SAT 97
[2022-03-21] VITALS: BP 138/71
--- NOTE | 2022-03-21 01:22 | PM.OBPNVD ---
OB - PN: Subj Subjective Date/time seen: 03/21/22 01:22 Narrative: Pain OK. Tolerating diet. Would like to go home. OB - PN: Obj Data Labs CBC & Chem 7: 03/20/22 04:07 03/19/22 10:39 Labs: Laboratory Results - last 24 hr 03/20/22 04:07 WBC 9.0 RBC 3.47 L Hgb 9.6 L Hct 30.3 L MCV 87.3 MCH 27.7 MCHC 31.7 L RDW 15.4 H Plt Count 191 MPV 10.4 Immature Gran % (Auto) 0.4 Neut % (Auto) 70.2 Lymph % (Auto) 21.8 [place] % (Auto) 6.5 Eos % (Auto) 0.8 Baso % (Auto) 0.3 Lymph # (Auto) 1.97 [place] # (Auto) 0.6 Eos # (Auto) 0.1 Baso # (Auto) 0.0 Abs Immat Gran (auto) 0.04 H Absolute Neuts (auto) 6.3 Absolute Nucleated RBC 0.0 Nucleated RBC % 0.0 OB - PN A/P Plan Comments: A: POD#2, doing well. P: Home to f/u 4 weeks. Exam Narrative: AVSS ABD soft, nontender, fundus firm. Incision c/d/i. EXT nontender
[2022-03-21 05:30] VITALS: BP 145/84
[2022-03-21] MEDS: HYDROcodone/acetaminophen (*CRX) 5-325 MG TABLET 1 TAB PO ×2 (05:40→09:47)
[2022-03-21] MEDS: IBUPROFEN 600 MG TABLET PO (05:40)
--- NOTE | 2022-03-21 06:30 | PC.NURSE ---
PT introductions made and plan of care discussed per post op c section, pain management, breast feeding, pumping and bottle feeding, daily care activities and pending discharge to home. PT and spouse both recipients of such instructions and no barriers to learning identified at this time. PT received instructions this shift per one to one discussion, mom baby care guide and demonstrations. PT verbalized understanding of such care.
[2022-03-21] MEDS: SIMETHICONE 80 MG TAB.CHEW PO (09:47)
[2022-03-21 09:48] VITALS: BP 133/80; PULSE 81; RESP 18; TEMP 36.4; O2SAT 97
[2022-03-21] MEDS: DOCUSATE SODIUM 100 MG CAPSULE PO (09:48)
[2022-03-21] MEDS: MULTIVIT/MIN/PREN/FOL AC/IRON TABLET 1 TAB PO (09:48)
[2022-03-21] MEDS: POLYSACCHARIDE IRON COMPLEX 150 MG CAPSULE PO (09:48)
--- NOTE | 2022-03-21 11:00 | PC.NURSE ---
Pt received discharge instructions per protocol and verbalized understanding of such care
--- NOTE | 2022-03-21 11:35 | PC.NURSE ---
PT discharged to home ambulatory accompanied by both spouse and infant and taken to waiting car. follow up appts confirmed
[2022-03-22 12:31] VITALS: BP 163/89; PULSE 86; RESP 20; TEMP 37.4; O2SAT 100
== END 2022-03-21 11:35 | disposition home or self-care (01) | DRG 784 ==
LOC: ANHLDR 09:54 → ANHOB2 15:58
PROVIDERS: Admitting Provider Obstetrics & Gynecology; PCP Family Medicine; Visit Provider Obstetrics & Gynecology
PROC: 10D00Z1 Extraction of Products of Conception, Low, Open Approach (ICD-10-PCS; CPT 59514; principal; 2022-03-19 12:00)
DX: O34.219 Maternal care for unspecified type scar from previous cesarean delivery (principal); O10.92 Unspecified pre-existing hypertension complicating childbirth; O11.4 Pre-existing hypertension with pre-eclampsia, complicating childbirth; O99.824 Streptococcus B carrier state complicating childbirth; O99.214 Obesity complicating childbirth; E66.01 Morbid (severe) obesity due to excess calories; O69.81X0 Labor and delivery complicated by cord around neck, without compression, not applicable or unspecified; O24.429 Gestational diabetes mellitus in childbirth, unspecified control; O24.424 Gestational diabetes mellitus in childbirth, insulin controlled; Z3A.37 37 weeks gestation of pregnancy; Z37.0 Single live birth; Z30.2 Encounter for sterilization; Z87.891 Personal history of nicotine dependence
CPT/HCPCS: 36415; 59025; 80053; 81050; 82575; 84156; 84550; 85025; 85027; 86592; 86850; 86900; 86901; 88302; 88307; A9270; J0690; J2274; J2405; J2590; J3010; J7120

== ENCOUNTER 2022-09-13 06:54 | Outpatient (CLI) | payer OTHER, SELFPAY ==
--- NOTE | ~2022-09-13 | MR_ITS ---
MRI of the lumbar spine Clinical History: Back pain Technique: Axial T2-weighted images, and sagittal T1-weighted, T2-weighted, and T2 fat-sat images wer e acquired. Findings: There is no fracture or subluxation of the lumbar spine. Vertebral bodies maintain normal h eight and alignment. No bone marrow signal abnormality seen. At L1-L2, L2-L3, L3-L4, L4-L5, there is no disc bulge or herniation. There are minimal facet joint de generative changes. No spinal canal stenosis or neural foraminal narrowing at these levels. At L5-S1, there is diffuse disc bulge with facet arthropathy. There is no spinal canal stenosis. Ther e is severe right neural foraminal narrowing and mild left neural foraminal narrowing. Paravertebral soft tissues are unremarkable. Impression: Severe right neural foraminal narrowing and mild left neural foraminal narrowing at L5-S1. Please see details above. Reviewed, dictated and finalized at [facility]. [employer] Impression: Severe right neural foraminal narrowing and mild left neural foraminal narrowin g at L5-S1. Please see details above.
== END 2022-09-13 06:55 | disposition home or self-care (01) ==
LOC: ANHIMG 06:58
PROVIDERS: PCP Family Medicine; Visit Provider Family Medicine
DX: M54.50 Low back pain, unspecified (principal); M48.07 Spinal stenosis, lumbosacral region
CPT/HCPCS: 72148

== ENCOUNTER 2024-04-10 04:10 | Emergency (ER) | payer BC, SELFPAY ==
--- NOTE | ~2024-04-10 | XR_ITS ---
Portable chest x-ray Comparison: 01/24/2008 Clinical History: Chest pain Findings: Lungs are clear, without focal consolidation or pleural effusion. Cardiomediastinal silho uette is stable. Bones and soft tissues are unremarkable. Impression: Clear lungs. Reviewed, dictated and finalized at location . Impression: Clear lungs.
--- NOTE | 2024-04-10 04:11 | ECG_ITS ---
Test Date: 2024-04-10 04:21:37 Measurements Intervals [place] Rate: 78 P: 24 VA: 178 QRS: -6 QRSD: 105 T: 52 QT: 403 QTc: 462 Interpretive Statements SINUS RHYTHM BORDERLINE R WAVE PROGRESSION, ANTERIOR LEADS BASELINE ARTIFACT-I, III, AVL, V3, V4, V6 BORDERLINE ECG No previous ECG available for comparison Electronically Signed On 04-10-2024 06:31:48 CDT by Sean Ulrich D.O.
[2024-04-10 04:21] VITALS: BP 159/88; PULSE 76; RESP 18; TEMP 36.6; O2SAT 100
[2024-04-10 04:25] VITALS: O2SAT 100
[2024-04-10 04:26] VITALS: PULSE 78
[2024-04-10 04:33] LABS: Basophils Percent Auto 0.4 % (0.2-1.2); Eosinophils Absolute Auto 0.3 K/mm3 (0-0.3); Eosinophils Percent Auto 2.8 % (0-4.4); Hematocrit 44.1 % (37.0-47.0); Hemoglobin 14.2 g/dL (12.0-15.0); Immature Granulocyte Absolute 0.02 K/mm3 (0.00-0.031); Immature Granulocyte Percent A 0.2 % (0-0.5); Lymphocytes Absolute Auto 4.01 K/mm3 (0.9-3.2); Lymphocytes Percent Auto 42.1 % (18.3-44.2); Mean Corpuscular HGB Conc 32.2 g/dl (32-36); Mean Corpuscular Volume 90.2 fl (80-100); Mean Platelet Volume 9.2 fl (7.4-10.4); Monocytes Absolute Auto 0.6 K/mm3 (0.1-0.6); Monocytes Percent Auto 5.9 % (2.6-8.5); Neutrophils Absolute Auto 4.6 K/mm3 (1.3-6.7); Neutrophils Percent Auto 48.6 % (45.5-73.1); Platelet Count Result 314 k/mm3 (150-375); Red Blood Count 4.89 M/mm3 (4.2-5.4); White Blood Count 9.5 K/mm3 (4.5-10.0)
[2024-04-10 04:46] LABS: Alanine Aminotransferase 19 U/L (6-35); Albumin Level 4.7 g/dL (3.5-5.1); Alkaline Phosphatase 44 U/L (38-126); Anion Gap 12 mmol/L (4-12); Aspartate Amino Transferase 20 U/L (14-36); Bilirubin,Total 0.4 mg/dL (0.2-1.3); Blood Urea Nitrogen 17 mg/dL (7-17); Carbon Dioxide 28 mmol/L (22-30); Chloride 97 mmol/L (98-107); Estimated CRCL calculation 131 ml/min; Estimated Glomerular Filt Rate > 60; Glucose 118 mg/dL (65-110); Lipase 146 U/L (23-300); Potassium 3.4 mmol/L (3.4-5.0); Sodium 137 mmol/L (137-145)
[2024-04-10 04:50] LABS: Prothrombin Time 13.6 Seconds (11.1-14.7)
[2024-04-10 04:57] LABS: Troponin I < 0.012 ng/mL (0.000-0.034)
[2024-04-10] MEDS: ASPIRIN 81 MG CHEWABLE TABLET 324 MG PO (05:13)
[2024-04-10] MEDS: PANTOPRAZOLE SODIUM IV 40 MG VIAL IV PUSH (05:57)
[2024-04-10 05:58] VITALS: BP 145/77; PULSE 77; RESP 20; O2SAT 99
--- NOTE | 2024-04-10 06:39 | PC.NURSE ---
EDP Dr. Bo verbal ordered 3hr trop to be drawn early at this time. 3hr trop obtained and sent to lab.
--- NOTE | 2024-04-10 06:45 | ED.CHESTPAIN ---
HPI - Chest Pain General Chief Complaint: Chest Pain Stated Complaint: Woke up with cp Time Seen by Provider: 04/10/24 04:13 History of Present Illness HPI narrative: Patient is a 38-year-old female who presents to the emergency department this morning complaining of chest pain that woke her from sleep. Patient states that she feels a burning sensation in the middle of her chest radiating to her. Patient states that by the time she got to the emergency department the pain resolved. She is unsure of what caused the pain and denies any similar symptoms in the past. Patient denies any recent URI symptoms, denies any fevers or chills at home, any nausea, vomiting or abdominal pain. No additional symptoms or concerns at this time. Related Data Home Medications Medication Instructions Recorded Confirmed prenmalcolm.vits,cadence,iwy-ivzl-hzuwd 1 tablet PO DAILY 07/08/20 03/19/22 acetaminophen 325 mg capsule 325 mg PO Q6H PRN Pain 08/19/21 03/19/22 (Tylenol) Allergies Allergy/AdvReac Type Severity Reaction Status Date / Time No Known Allergies Allergy Verified 04/02/22 14:51 Review of Systems Review of Systems: All systems are reviewed and are negative unless stated otherwise in the HPI. [facility] Past Medical History Medical History GDM (gestational diabetes mellitus) History of miscarriage x2 History of PCOS Hypertension Morbid obesity Surgical History Surgical History Previous section x1 Family History Family History Grandparent Diabetes mellitus Carcinoma of colon Hypertension Cerebrovascular accident Heart disease Heart attack H/O heart bypass surgery Skin cancer Gallbladder cancer Father Hyperlipidemia Hypertension Diabetes mellitus Mother Hypertension Social History Social History Smoking packs per day: 1 Smoking cigarettes per day: 20.0 Years smoked: 16 Smoking pack-years: 16.00 Smoking status: Former smoker Tobacco type: cigarettes Smoking end date: 10/06/17 Alcohol intake: current Drinks per week: 3 Substance use: never Substance use type: marijuana Other substance usage details: 20 years ago Living arrangements: with family Spiritual care concerns: No Exam Narrative: General: Alert, awake, afebrile, in no acute distress. HEENT: PERRL, no rhinorrhea, no post nasal drip, oropharynx clear. Cardiovascular: Regular rate and rhythm, no murmurs, rubs or gallops, no peripheral edema. Respiratory: Clear to auscultation bilaterally, no tachypnea, no wheezing, no rhonchi, no rubs, no respiratory distress. Abdomen: Soft, nontender, nondistended, no rebound, no guarding, no peritoneal signs. Musculoskeletal: No joint swelling or deformity, normal muscle tone. Skin: No rashes or petechia, no signs of infection. Neurological: Alert and oriented to person, place, and time. Follows all commands. No focal deficits, speech is clear and fluent. Course Vital Signs Vital signs: Vital Signs Temperature 97.8 F 04/10/24 04:21 Pulse Rate 76 04/10/24 04:21 Respiratory Rate 18 04/10/24 04:21 Blood Pressure 159/88 H 04/10/24 04:21 Pulse Oximetry 100 04/10/24 04:21 Oxygen Delivery Room Air 04/10/24 04:21 Temperature 97.8 F 04/10/24 04:21 Pulse Rate 74 04/10/24 07:13 Respiratory Rate 13 04/10/24 07:13 Blood Pressure 128/76 04/10/24 07:13 Pulse Oximetry 100 04/10/24 07:13 Oxygen Delivery Room Air 04/10/24 04:25 MDM - Chest Pain MDM Narrative Medical decision making narrative: The patient was evaluated by myself in the emergency department. History is obtained from patient who is an independent historian and physical exam was performed. External medical records were reviewed at this time.
[2024-04-10 07:05] LABS: Troponin I < 0.012 ng/mL (0.000-0.034)
--- NOTE | 2024-04-10 07:09 | ECG_ITS ---
Test Date: 2024-04-10 07:10:58 Measurements Intervals [place] Rate: 69 P: 29 PA: 186 QRS: -5 QRSD: 98 T: 40 QT: 392 QTc: 422 Interpretive Statements SINUS RHYTHM BORDERLINE R WAVE PROGRESSION, ANTERIOR LEADS BASELINE ARTIFACT- I, II, AVR, AVL, AVF BORDERLINE ECG Compared to ECG 04/10/2024 04:21:37 NO SIGNIFICANT CHANGE Electronically Signed On 04-10-2024 09:52:22 CDT by Sean Ulrich D.O.
--- NOTE | 2024-04-10 07:12 | PC.NURSE ---
report given to mellissa andres at this time.
[2024-04-10 07:13] VITALS: BP 128/76; PULSE 74; RESP 13; O2SAT 100
== END 2024-04-10 07:22 | disposition home or self-care (01) ==
PROVIDERS: Emergency Provider Emergency Medicine; PCP Family Medicine
DX: R07.89 Other chest pain (principal); I10 Essential (primary) hypertension
CPT/HCPCS: 36415; 71045; 80053; 83690; 84484; 85025; 85610; 85730; 93005; 96374; 99284; A9270; J2470

== ENCOUNTER 2024-04-10 10:32 | Outpatient (CLI) | payer BC, SELFPAY ==
--- NOTE | ~2024-04-10 | MM_ITS ---
EXAMINATION: MM screening [place] BI w [place] HISTORY: Screening TECHNIQUE: Craniocaudal and mediolateral oblique 3-D tomosynthesis images were obtained and synthetic 2-D images were generated. CAD analysis was submitted and interpreted. COMPARISON: No prior mammogram is available for comparison at this institution. BREAST PARENCHYMAL COMPOSITION: Not dense: There are scattered areas of fibroglandular density. FINDINGS: There is no evidence of suspicious mass, calcification, or architectural distortion to sugg est malignancy in either breast. There has been no suspicious interval change. IMPRESSION: 1. No mammographic evidence of malignancy. 2. Recommend routine screening mammography in one year. BI-RADS Category 1: Negative Reviewed, dictated and finalized at location [facility].
== END 2024-04-10 10:33 | disposition home or self-care (01) ==
PROVIDERS: PCP Student in an Organized Health Care Education/Training Program; Visit Provider Obstetrics & Gynecology
DX: Z12.31 Encounter for screening mammogram for malignant neoplasm of breast (principal)
CPT/HCPCS: 77063; 77067